=== PATIENT | male | born 1930 | race African-American/Black ===

== ENCOUNTER 2016-07-31 21:35 | Inpatient (IN) | payer OTHER, MEDICARE ==
--- NOTE | ~2016-07-31 | DS ---
Discharge Summary [facility] [address] [place]. [address] NAME: BRAYAN GALINDO : 29 STATUS : DIS IN PAT#: [id number] AGE: 86 ADM/REG DATE : 07/31/16 MR#: [id number] REPORT SERV DATE: 08/14/16 DICTATED BY: LASHAY RUIZ DATE: 08/13/16 REPORT STATUS : Draft TRANSCRIBED BY: MODTeodora DATE: 08/13/16 Data Collection from hospitalization DISCHARGE DIAGNOSES: 1. Acute respiratory failure/pulmonary edema. 2. Anemia/gastrointestinal bleed. 3. Anemia, status post transfusion. 4. Diastolic congestive heart failure. 5. Hepatitis C. 6. End-stage renal disease. 7. Hypertension. 8. Diabetes. 9. Hyperlipidemia. 10.Osteoarthritis. CONSULTATIONS: 1. Avelino Tenorio MD. 2. Yessy Jamison MD. PROCEDURES: CT scan of the abdomen and pelvis without contrast, 07/31/2016. During admission, colonoscopy 08/02/2016, upper GI endoscopy 08/02/2016, intubation 08/03/2016. DISPOSITION: [facility]. HOSPITAL COURSE: This is an 86-year-old man who dialyzes on Mondays, Wednesdays, and Fridays for end-stage renal disease. The patient complained of bright red blood per rectum. The onset was late in the week prior to admission. He is somewhat of a poor historian overall. He reported no associated chest pain, nausea, vomiting, or diarrhea. He said that he was brought to the emergency room with the assistance of his grandson for evaluation. His platelets were somewhat low and he was provided 2 units of fresh frozen plasma and at least one unit of packed red blood cells. Dialysis would be initiated the following morning. He was admitted at this time for further evaluation and treatment. Upon admission, a CT scan of the abdomen and pelvis without contrast revealed mild diverticulosis throughout the colon. No acute diverticulitis pattern was identified. Mild cortical renal thinning was noted. He had moderate to severe degenerative joint disease at L4-L5 and central focal spinal stenosis L4-L5 and moderate stenosis L3-L4. He was held n.p.o. The following morning, dialysis therapy was performed. He was seen by Dr. Avelino Tenorio regarding rectal bleeding. Hemoglobin had decreased down to 6.5. INR level was mildly elevated at 1.6. Creatinine level was 6.57. The patient did not appear to have any active bleeding at this time. A bowel prep would be performed as it was felt the patient would need to undergo a colonoscopy. If no source of bleeding was found on colonoscopy, he recommended pursuing an EGD. On 08/02/2016, the patient was taken to the Endoscopic Suite by Dr. Jere Romano where he underwent colonoscopy. There was blood in the entire examined colon, left greater than right. There was a 30 mm polyp in the cecum. Resection was not attempted secondary to GI bleeding. There were two 5 to 7 mm polyps in the Discharge Summary [address] [place]. [address] NAME: BRAYAN GALINDO : 29 STATUS : DIS IN PAT#: [id number] AGE: 86 ADM/REG DATE : 07/31/16 MR#: [id number] REPORT SERV DATE: 08/14/16 DICTATED BY: LASHAY RUIZ DATE: 08/13/16 REPORT STATUS : Draft TRANSCRIBED BY: CYNDI DATE: 08/13/16 transverse colon, resection was not attempted. There was diverticulosis from the sigmoid to ascending colon. He had internal hemorrhoids. The examined portion of the ileum was normal. Upper GI endoscopy was also performed. This revealed normal esophagus, hiatal hernia, and normal examined duodenum. On 08/03/2016, the patient felt well. He had no abdominal pain. He was eating. He had no stool output overnight. The patient was seen in consultation by Dr. Yessy Jamison regarding acute hypoxemic respiratory failure. The patient had continued to develop worsening shortness of breath during the process of being transfused. He also received some fluid early in this admission as well. Rapid Response was called on the floor after he was moved directly from room 526 where he had been admitted to the Hemodialysis Unit for emergent volume removal with a suspicion of transfusion-associated circulatory overload. He was actually on a BiPAP at that point and after being started on hemodialysis, he continued to desaturate into the low 80s despite 100% FiO2 with BiPAP setting 20/10 and was ultimately intubated and placed on mechanical ventilation in the dialysis unit. He was admitted to the MICU for further care. He required intubation. It was suspected that he had transfusion associated circulatory overload in the setting of end-stage renal disease. Mechanical ventilation was continued. Dialysis will be completed for volume removal. He would be transferred from the MICU for further workup. SCDs and TEDs were in place for DVT prophylaxis in the setting of acute GI bleed. He was already on a proton pump inhibitor. He would be held n.p.o. until he was more stable. The patient developed progressive hypoxia again with recurrent code. He required CPR two additional time. There were no further plans for CPR. There was a strong likelihood of profound anoxic brain injury. Any meaningful recovery was felt to be dismal. This was discussed with the patient's grandson in detail. The patient's condition continued to decline. Later that afternoon, he was found without blood pressure, pulse, or respirations. He was pronounced at 1653 hours and released to the above-mentioned home. Information collected by: Jeanne Clark I submit the above information as my discharge summary. TG/MODL Lashay Ruiz M.D. / [id number] CC: Gerald Florence MD William M. Cooney, MD
--- NOTE | ~2016-07-31 | HP ---
History And Physical [id number] [facility] [place]. [address] NAME: BRAYAN GALINDO : 29 STATUS : ADM Candie PAT#: [id number] AGE: 86 ADM/REG DATE : 07/31/16 MR#: [id number] REPORT SERV DATE: 08/01/16 DICTATED BY: LASHAY RUIZ DATE: 08/01/16 REPORT STATUS : Draft TRANSCRIBED BY: MODL DATE: 08/01/16 DATE OF ADMISSION: 07/31/2016 REASON FOR ADMISSION: End-stage renal disease patient with complaint of bright red blood per rectum. HISTORY OF PRESENT ILLNESS: This is a very pleasant, 86-year-old -[place] male patient, who dialyzes at [address] on a Thursday, Thursday, Thursday schedule. He reports to [facility] with a complaint of bright red blood per rectum, onset approximately late last week according to the patient's data this morning. However, he is somewhat of a poor historian overall. He reports no associated chest pain. No nausea, vomiting, or diarrhea. He reports that he was brought to the emergency department with the assistance of his grandson for evaluation. He was subsequently admitted inpatient. As his platelets are somewhat low, he was provided two of FFP and has been provided at least one unit of packed red cells, which is infusing now with initiation of dialysis this morning. He is awake and alert. No acute distress. Denies any further complaints as above. PAST MEDICAL HISTORY: Positive for end-stage renal disease, Thursday, Thursday, Thursday dialysis at [address] History also positive for hypertension, diastolic CHF with unknown ejection fraction, LVH, left atrial enlargement, hypertension, diabetes, hyperlipidemia, chronic back pain, osteoarthritis, hepatitis C, and RVH. REVIEW OF SYSTEMS: Completed. Please see HPI for pertinent details. SOCIAL HISTORY: No ETOH. No illicit drugs. No tobacco. Lives here locally. Does receive some assistance of care from family members. CURRENT MEDICATIONS AND ALLERGIES: Active medications on entry include amlodipine 10 mg p.o. daily, Coreg 12.5 mg p.o. b.i.d., Apresoline 50 mg p.o. t.i.d., NovoLog via sliding scale, and simvastatin 10 mg p.o. at bedtime. ALLERGIES: HE LISTS NO KNOWN ALLERGIES. PHYSICAL EXAMINATION: VITAL SIGNS: Blood pressure at 180/74, temperature 97.2, respiratory rate of 14. His heart rate is 80 beats per minute and regular. He is 100% on 2 L via nasal cannula. GENERAL: He is awake, alert, oriented, somewhat forgetful, very pleasant 86-year-old -[place] male, in no distress, in dialysis unit during evaluation. HEENT: Normocephalic, atraumatic. Normal ocular movements. No scleral icterus. Conjunctival pallor is appreciated. NECK: Supple without thyromegaly. No JVD or mass. CHEST: Positive S1 and S2. No rubs or gallops. LUNGS: Diminished throughout. Normal expansion and effort bilaterally. GI: Positive bowel sounds in all four quadrants. No appreciable mass or tenderness. : Deferred. History And Physical [address] [address] NAME: BRAYAN GALINDO : 29 STATUS : ADM Candie PAT#: [id number] AGE: 86 ADM/REG DATE : 07/31/16 MR#: [id number] REPORT SERV DATE: 08/01/16 DICTATED BY: LASHAY RUIZ DATE: 08/01/16 REPORT STATUS : Draft TRANSCRIBED BY: CYNDI DATE: 08/01/16 EXTREMITIES: Positive pulses to all four extremities. Dialysis access in his left upper extremity, which currently shows a palpable bruit and thrill. He is receiving infusion of packed red cells through a peripheral IV in his right arm. NEUROLOGIC: Appears to be grossly intact. Nonfocal. SKIN: Warm, dry, and intact to the visualized surfaces. No rash, lesions, or ecchymosis. PSYCH: He is of appropriate mood and affect. LABORATORY DATA: Pertinent laboratories and imaging to this evaluation are as follows: Portable chest x-ray shows no acute process, chronic scarring of the left upper lobe. Most recent H and H 6.[address] of the abdomen pelvis without contrast identifies mild diverticulosis throughout the colon. No acute diverticulitis pattern identified with suggested colonoscopy for further evaluation. Mild cortical renal thinning is also noted, [id number] DJD noted in L4- L5, central focal spinal stenosis L4-L5, and moderate stenosis of L3-L4. Most recent CBC shows white blood cell count of 4.6, RBC 2.76, hemoglobin 8.1, hematocrit 23.9, and platelets 136. Comprehensive metabolic panel: Sodium 138, potassium 4.4, chloride 97, CO2 of 30, BUN 44, creatinine 6.17. Reflected GFR 9 mL/minutes, glucose of 325, calcium 7.8, albumin 3.2, alkaline phos 122, ALT and AST 23 and 22. Serum lipase at 63. IMPRESSION AND PLAN: End-stage renal disease patient who is on dialysis, Thursday, Thursday, Thursday at [facility] 3rd, now reporting to [facility] with a complaint of bright red blood per rectum with a decreased hemoglobin and depressed platelets as above. He has received two of FFP this morning at the request of the admitting physician in the emergency department. He is also receiving infusion of packed red cells this morning. We will place him on serial H and H, monitor his hemoglobin and hematocrit and transfuse as needed. N.p.o. status until evaluated by [facility]. Dialysis this morning for his usual treatment time. We will follow him closely with serial H and Hs as above. Home medications will be started to protect his left upper extremity fistula. Strict I's and Os and daily weights. Await further input and opinion by [facility] and we appreciate them participating in this patient's care and assisting with his clinical course. Further modification of treatment plan may be made based on clinical presentation, patient's laboratory results, and further consultation with Renal attending. DICTATED BY: Blayne Cruz NP JR/CYNDI Lashay Ruiz M.D. / [id number] CC: History And Physical [address] [address] NAME: BRAYAN GALINDO : 29 STATUS : ADM Candie PAT#: [id number] AGE: 86 ADM/REG DATE : 07/31/16 MR#: [id number] REPORT SERV DATE: 08/01/16 DICTATED BY: LASHAY RUIZ DATE: 08/01/16 REPORT STATUS : Draft TRANSCRIBED BY: CYNDI DATE: 08/01/16 Gerald Florence Gustafson, MD
--- NOTE | ~2016-07-31 | CN ---
Consultation Report [facility] [address] [place]. [address] NAME: BRAYAN GALINDO : 29 STATUS : ADM IN [facility]#: [id number] AGE: 86 ADM/REG DATE : 07/31/16 MR#: [id number] REPORT SERV DATE: 08/03/16 DICTATED BY: YESSY MADRID DATE: 08/03/16 REPORT STATUS : Draft TRANSCRIBED BY: MODL DATE: 08/03/16 PULMONARY CRITICAL CARE MEDICINE CONSULTATION DATE OF CONSULTATION: 08/03/2016 REASON FOR CONSULTATION: Acute hypoxemic respiratory failure. HISTORY OF PRESENT ILLNESS: Mr. Galindo is an 86-year-old gentleman who has ESRD. He dialyzes at the Center [address] Thursday, Thursday, Thursday. He is fairly active at his baseline, but presented to the hospital over the weekend for bright red blood per rectum, which had actually been going on for at least several days according to his family. He had no other associated symptoms and was admitted for GI evaluation and packed red blood cell transfusion, which was initiated yesterday. Unfortunately, he continued to develop worsening shortness of breath during the process of being transfused, and of note, he also received some fluid early in his admission as well. A rapid response was called on the floor and he was moved directly from room 526 where he had been admitted to the Hemodialysis Unit for emergent volume removal with a suspicion of transfusion associated circulatory overload. He was actually on a BiPAP at that point, and after being started on hemodialysis continued to desaturate to the low 80s despite 100% FiO2 with BiPAP setting 20/10 and was ultimately intubated and placed on mechanical ventilation in the dialysis unit. He is now being moved to the MICU for further care. PAST MEDICAL HISTORY: End-stage renal disease with details as above. Additional past medical history includes hypertension, diastolic CHF, LVH with left atrial enlargement, diabetes, dyslipidemia, chronic back pain, osteoarthritis, and chronic hepatitis C. SURGICAL HISTORY: AV fistula placement. SOCIAL HISTORY: No alcohol, illicit drug, or tobacco use. He uses snuff. His grandson is his primary medical decision maker and lives in the area surrounding the hospital dialyzing at the [address] [place] [address]. FAMILY HISTORY: Noncontributory. REVIEW OF SYSTEMS: A 13-point review of systems was completed and negative except for those points described above in the history of present illness section of the dictation. ALLERGIES: NONE. HOME MEDICATIONS: Amlodipine 10 daily, Coreg 12.5 twice a day, Apresoline 50 mg three times a day, sliding scale insulin on an as needed basis, and Zocor 10 mg at bedtime. He is on no home anticoagulants. Consultation Report [place] [address] [place]. [address] NAME: BRAYAN GALINDO : 29 STATUS : ADM IN PAT#: [id number] AGE: 86 ADM/REG DATE : 07/31/16 MR#: [id number] REPORT SERV DATE: 08/03/16 DICTATED BY: YESSY MADRID DATE: 08/03/16 REPORT STATUS : Draft TRANSCRIBED BY: CYNDI DATE: 08/03/16 ADVANCE DIRECTIVES/LIVING MACEDO: I interviewed his grandson who reported that he wishes to be a full code. PHYSICAL EXAMINATION: VITAL SIGNS: Blood pressure 111/55, heart rate is 85, oxygen saturation is 93% on 100% FiO2. He is afebrile. GENERAL: The patient is an elderly male, who appears chronically ill. He is nonverbal on a BiPAP and picking at the bed sheets and advance of intubation. HEENT: Head is atraumatic and normocephalic. Pupils are equal, round, and reactive to light. Extraocular movements are intact. Ears, nose, and mouth are unremarkable. He is edentulous and his oral mucosa is moist. He has pale conjunctivae and pale gingival mucosa. NECK: Supple with JVD to the sternocleidomastoid. LUNGS: With bibasilar crackles and few expiratory wheezes. HEART: S1, S2. Brisk capillary refill in distal extremities. ABDOMEN: Soft, nontender, nondistended with positive bowel sounds in all four quadrants. No appreciable peritoneal signs. : Normal external male genitalia. EXTREMITIES: Without clubbing, cyanosis, or edema. SKIN: Cool and dry. LYMPHATIC: Exam was unremarkable. NEUROLOGIC: Exam is very limited secondary to mental status. PSYCHIATRIC: Exam is unable to be performed. DIAGNOSTIC DATA: Personal review of diagnostic workup completed today. CBC shows a normochromic normocytic anemia with a hemoglobin of 7.5, hematocrit 22.3, white blood cell count is 5.9, platelet count is 70. Renal function panel shows BUN 31, creatinine of 5.93 with normal electrolytes and a calculated GFR of 0 consistent with end-stage renal disease. Albumin is 2.6, glucose is 59, however, on recheck Accu-Cheks, he has been ranging from 200- 300 throughout the day[address] [facility], and endoscopy report were reviewed. IMPRESSION: 1. Acute hypoxemic respiratory failure requiring mechanical intubation. 2. Suspected transfusion-associated circulatory overload in the setting of end-stage renal disease. 3. Acute lower GI bleed, suspected secondary to bleeding diverticula, which is self- resolved. 4. Normochromic normocytic anemia of chronic renal disease. 5. Thrombocytopenia. 6. Past medical history of hypertension; diastolic congestive heart failure with left ventricular hypertrophy, right ventricular hypertrophy, and left atrial enlargement; type 2 diabetes mellitus; dyslipidemia; chronic back pain; and arthritis. 7. Advanced age and general debility. Consultation Report [address] [address] NAME: BRAYAN GALINDO : 29 STATUS : ADM IN [facility]#: [id number] AGE: 86 ADM/REG DATE : 07/31/16 MR#: [id number] REPORT SERV DATE: 08/03/16 DICTATED BY: YESSY MADRID DATE: 08/03/16 REPORT STATUS : Draft TRANSCRIBED BY: CYNDI DATE: 08/03/16 PLAN: Mr. Galindo has now been intubated in the dialysis unit and we will continue with mechanical ventilation. The suspicion is for transfusion-associated circulatory overload, however, other etiologies cannot be excluded. We will complete his dialysis for volume removal and transfer from the MICU for further workup. A followup chest x-ray following intubation is pending, and we will place a PICC for better central venous access. I did update his grandson at length and he is full code. SCDs and TEDs for DVT prophylaxis in the setting of acute GI bleeding. He is already on a proton pump inhibitor, which will cover stress ulcer prophylaxis while on the ventilator, and he will be kept n.p.o. until he is more stable. Case was discussed at length with Dr. Becker and approximately 72 minutes of critical care time at the bedside were spent assessing and stabilizing Mr. Galindo this afternoon in the hemodialysis unit and later in the MICU (excluding time spent intubating). Thank you for your consultation. We will follow along closely. DANICA/CYNDI Yessy Madrid MD / [id number] CC: Raymundo Camejo M.D.
--- NOTE | ~2016-07-31 | CN ---
Consultation Report [facility] [address] [place]. [address] NAME: BRAYAN GALINDO : 29 STATUS : ADM IN PAT#: [id number] AGE: 86 ADM/REG DATE : 07/31/16 MR#: [id number] REPORT SERV DATE: 08/03/16 DICTATED BY: JENNIFER MADRID DATE: 08/03/16 REPORT STATUS : Draft TRANSCRIBED BY: MODL DATE: 08/03/16 DATE OF CONSULTATION: ADDITIONAL CRITICAL CARE DOCUMENTATION DATE OF DOCUMENTATION: This dictation will cover three separate code blue events as well as critical care time provided between code events up until the patient was made do not resuscitate/comfort care. Please see my detailed consult note as well as intubation note for details of events leading up to code blue event. While the Critical Care team were still in the hemodialysis unit, Mr. Galindo developed worsening oxygen sats and ultimately developed a cardiac arrest after bradying down to asystole at 1506. He had CPR and he was started on ACLS protocol including CPR Ambu bagging and an amp of epinephrine was given. On initial pulse check at 1508, he was in sinus tach and return his circulation was cold. He continued to be Ambu bagged and did receive 1 amp of bicarb. Over the next few minutes, his blood pressure cycled and was 196/88 with a heart rate of 105. Unfortunately, over the course of the next few minutes, he continued to desaturate and when his sat could not be improved from the mid 50s despite aggressive bagging and dissection of the copious secretions emanating from his endotracheal tube, he began to jose miguel down second time around 1522. His initial heart rate was in the low 100s and proceeded downward until it ultimately was in the low 40s with pulse not being palpable. CPR was restarted at 1523 and he was given another amp of epinephrine as well as an amp of calcium and an additional amp of bicarb. CPR was continued and on second pulse check at 1525, he had a blood pressure of 116/75, a heart rate of 120 and palpable peripheral pulses. There were dramatic ST-segment elevations on the monitor and his sat was in the mid 80s. He was actually prepped for transport the short distance from hemodialysis to the MICU and during that transport, he was being Ambu bagged using a PEEP valve set at 16 of PEEP with 100% oxygen. Wentworth down the newman, he was noted to bradying down again and CPR was actually initiated by nursing staff on the bed as it was being rolled into his room in MICU bed 5 and ACLS was re-initiated at 1534. He received another amp of epinephrine and continued to be Ambu bagged until next pulse check at 1537, at which point, he was sinus tach on the monitor with palpable pulse, a heart rate of 119, and a MAP of 156. Unfortunately, he was still not able to be oxygenated due to his marked pulmonary edema with thick copious secretions emanating from the endotracheal tube. He continued to have a thready pulse and after Dr. Becker and I discussed the situation with his grandson, we advised him that no additional ACLS would be of use to save Mr. Galindo' life as at this point, he has been hypoxemic for most of the last hour with sats ranging from 50-80 and he has blown pupils bilaterally with concern for profound anoxic brain injury. We advised that no additional chest compressions would be indicated and we did administer him one dose of morphine and Ativan for comfort, and he developed refractory hypoxemia with sats in the 40s and jose miguel down to asystole a 4th time, and time of was called. His grandson was in the waiting area and has been updated on all of these events and all of his questions were Consultation Report [address] [address] NAME: BRAYAN GALINDO : 28 STATUS : ADM IN [facility]#: [id number] AGE: 86 ADM/REG DATE : 07/31/16 MR#: [id number] REPORT SERV DATE: 08/03/16 DICTATED BY: JENNIFER MADRID DATE: 08/03/16 REPORT STATUS : Draft TRANSCRIBED BY: CYNDI DATE: 08/03/16 answered by myself and Dr. Becker. Please note that an additional 60 minutes of critical care time was expended during the last hour and a half (excluding active resuscitation managing Mr. Glaindo). DANICA/CYNDI Jennifer Madrid MD / [id number] CC: Raymundo Camejo M.D.
--- NOTE | ~2016-07-31 | EGD ---
EGD REPORT [facility] [address] [address] NAME: OLAYINKA GALINDO : [birth year] STATUS : ADM IN PAT#: [id number] AGE: 86 ADM/REG DATE : 07/31/16 MR#: [id number] REPORT SERV DATE: 08/02/16 DICTATED BY: BILLY DING DATE: 08/02/16 REPORT STATUS : Draft TRANSCRIBED BY: [facility] DATE: 08/02/16 Endoscopy Center Patient Name: Olayinka Galindo Date of : 1930 Attending MD: BILLY DING MD Procedure Date No Time: 08/02/2016 Procedure: Colonoscopy Indications: Hematochezia Referring MD: KRYSTLE BONILLA Medicines: Propofol per Anesthesia Complications: No immediate complications. Procedure: Pre-Anesthesia Assessment: - ASA Grade Assessment: IV - A patient with severe systemic disease that is a constant threat to life. After I obtained informed consent, the scope was passed under direct vision. Throughout the procedure, the patient's blood pressure, pulse, and oxygen saturations were monitored continuously. The [facility] H190L [id number] was introduced through the anus and advanced to the terminal ileum, with identification of the appendiceal orifice and IC valve. The colonoscopy was performed without difficulty. The patient tolerated the procedure well. The quality of the bowel preparation was good. Findings: The perianal and digital rectal examinations were normal. Red blood was found in the entire colon. There was a greater amount of blood in the left colon versus the right colon. A sessile polyp was found in the cecum. The polyp was 30 mm in size. Polypectomy was not attempted due to recent GI bleeding. Two sessile polyps were found in the transverse colon. The polyps were 5 to 7 mm in size. Polypectomy was not attempted. Multiple small and large-mouthed diverticula were found from sigmoid to ascending colon. Internal hemorrhoids were found during retroflexion and were Grade I (internal hemorrhoids that do not prolapse). The terminal ileum appeared normal. No blood was noted. Impression: - Blood in the entire examined colon (L>R). - One 30 mm polyp in the cecum. Resection not attempted secondary to GI bleeding. - Two 5 to 7 mm polyps in the transverse colon. Resection not attempted. - Diverticulosis from sigmoid to ascending colon. - Internal hemorrhoids. EGD REPORT [address] [address] NAME: OLAYINKA GALINDO : [birth year] STATUS : ADM IN [facility]#: [id number] AGE: 86 ADM/REG DATE : 07/31/16 MR#: [id number] REPORT SERV DATE: 08/02/16 DICTATED BY: BILLY DING DATE: 08/02/16 REPORT STATUS : Draft TRANSCRIBED BY: [employer] DATE: 08/02/16 - The examined portion of the ileum was normal. Recommendation: - Suspect diverticular bleeding which has ceased. Continue to observe. - Can consider repeat colonoscopy with polypectomy as an outpatient but risks may outweigh benefits given co-morbidities and advanced age. Procedure Code(s): --- Professional --- 59768, Colonoscopy, flexible, proximal to splenic flexure; diagnostic, with or without collection of specimen(s) by brushing or washing, with or without colon decompression (separate procedure) Diagnosis Code(s): --- Professional --- K92.2, Gastrointestinal hemorrhage, unspecified D12.3, Benign neoplasm of transverse colon D12.0, Benign neoplasm of cecum K64.0, First degree hemorrhoids K57.30, Diverticulosis of large intestine without perforation or abscess without bleeding K92.1, Melena CPT copyright 2013 [employer]. All rights reserved. The codes documented in this report are preliminary and upon bulk pigment reducer review may be revised to meet current compliance requirements. BILLY DING MD 08/02/2016 8:32 AM This report has been signed electronically. Number of Addenda: 0 Note Initiated On: 08/02/2016 7:57 AM Scope Withdrawal Time 0 hours 8 minutes 10 seconds [address] [id number]
--- NOTE | ~2016-07-31 | EGD ---
EGD REPORT [facility] [address] [address] NAME: OLAYINKA GALINDO : [birth year] STATUS : ADM IN PAT#: [id number] AGE: 86 ADM/REG DATE : 07/31/16 MR#: [id number] REPORT SERV DATE: 08/02/16 DICTATED BY: BILLY DING DATE: 08/02/16 REPORT STATUS : Draft [facility]ANSCRIBED [facility]: [facility] DATE: 08/02/16 Endoscopy Center Patient Name: Olayinka Galindo Date of : 1930 Attending MD: BILLY DING MD Procedure Date No Time: 08/02/2016 Procedure: Upper GI endoscopy Indications: Acute post hemorrhagic anemia Referring MD: KRYSTLE BONILLA Medicines: Propofol per Anesthesia Complications: No immediate complications. Procedure: Pre-Anesthesia Assessment: - ASA Grade Assessment: IV - A patient with severe systemic disease that is a constant threat to life. After obtaining informed consent, the endoscope was passed under direct vision. Throughout the procedure, the patient's blood pressure, pulse, and oxygen saturations were monitored continuously. The [facility]IF H190 [id number] was introduced through the mouth, and advanced to the second part of duodenum. The upper GI endoscopy was accomplished without difficulty. The patient tolerated the procedure well. Findings: The examined esophagus was normal. A small hiatus hernia was present. The examined duodenum was normal. Impression: - Normal esophagus. - Hiatus hernia. - Normal examined duodenum. Recommendation: - Proceed with colonoscopy. Procedure Code(s): --- Professional --- 89466, Esophagogastroduodenoscopy, flexible, transoral; diagnostic, including collection of specimen(s) by brushing or washing, when performed (separate procedure) Diagnosis Code(s): --- Professional --- K44.9, Diaphragmatic hernia without obstruction or gangrene D62, Acute posthemorrhagic anemia EGD REPORT [facility] [address] [address] NAME: OLAYINKA GALINDO : [birth year] STATUS : ADM IN [facility]#: [id number] AGE: 86 ADM/REG DATE : 07/31/16 MR#: [id number] REPORT SERV DATE: 08/02/16 DICTATED BY: BILLY DING. DATE: 08/02/16 REPORT STATUS : Draft TRANSCRIBED BY: [employer] DATE: 08/02/16 CPT copyright 2013 [employer]. All rights reserved. The codes documented in this report are preliminary and upon psychology intern review may be revised to meet current compliance requirements. BILLY DING MD 08/02/2016 8:27 AM This report has been signed electronically. Number of Addenda: 0 Note Initiated On: 08/02/2016 7:58 AM Scope Withdrawal Time 0 hours 0 minutes 0 seconds [address] [address]
--- NOTE | ~2016-07-31 | CN ---
Consultation Report [facility] [address] [place]. [address] NAME: BRAYAN GALINDO : [birth year] STATUS : ADM Candie PAT#: [id number] AGE: 86 ADM/REG DATE : 07/31/16 MR#: [id number] REPORT SERV DATE: 08/01/16 DICTATED BY: AVELINO NUNEZ DATE: 08/01/16 REPORT STATUS : Draft TRANSCRIBED BY: [employer] DATE: 08/01/16 INPATIENT CONSULT NOTE DATE OF CONSULTATION: 08/01/2016 REASON FOR CONSULTATION: Rectal bleeding. HISTORY OF PRESENT ILLNESS: Mr. Galindo is a very pleasant 86-year-old male with a past medical history significant really only for end-stage renal disease, on dialysis three days per week, who presented to the emergency department due to complaints of rectal bleeding. The patient states that he had had a single bloody bowel movement approximately three-four days prior to this presentation and then had no further bowel movements since that time until the day of presentation when he had another bowel movement that once again was bloody. The patient denied any significant presyncopal symptoms prior to coming into the emergency department. Upon presentation, his blood pressure was in the 130 systolic. The patient's pulse rate was in the 70s. The patient was afebrile, and had a hemoglobin that was noted to be at approximately his baseline of 8.1 with an MCV of 86.6, platelet count was a 136,000, white count was normal. PTT was 31 and INR was 1.4. The patient underwent a CT scan of the abdomen and pelvis, which was unremarkable. With repeating his hemoglobin overnight, the patient was found to have had a drop down to 6.5. INR was also mildly elevated at 1.6. GI consult was called for assessment and further evaluation of GI bleeding. The patient states that he has had a colonoscopy in the past approximately four years ago at the [facility]. He denies any significant findings at that time. No known family history of GI-related malignancy. REVIEW OF SYSTEMS: All systems were reviewed and were negative aside from what was mentioned in history of present illness. PAST MEDICAL HISTORY: Includes, 1. End-stage renal disease, on dialysis three days per week. 2. Diastolic congestive heart failure. 3. Left ventricular hypertrophy. 4. Hypertension. 5. Diabetes. 6. Hyperlipidemia. 7. Chronic back pain. 8. Osteoarthritis. 9. History of hepatitis C. FAMILY HISTORY: The patient has no family history of GI-related malignancy. SOCIAL HISTORY: The patient denies any alcohol, tobacco, or illicit substance use. Consultation Report [address] [place]. [address] NAME: BRAYAN GALINDO : [birth year] STATUS : ADM Candie PAT#: [id number] AGE: 86 ADM/REG DATE : 07/31/16 MR#: [id number] REPORT SERV DATE: 08/01/16 DICTATED BY: AVELINO NUNEZ DATE: 08/01/16 REPORT STATUS : Draft TRANSCRIBED BY: CY[employer]I DATE: 08/01/16 ALLERGIES: THE PATIENT HAS NO KNOWN DRUG ALLERGIES. MEDICATIONS: Outpatient medications include, 1. Hydralazine. 2. Zocor. 3. Norvasc. 4. Coreg. 5. NovoLog insulin. PHYSICAL EXAMINATION: VITAL SIGNS: Most recent vital signs include a temperature of 97.2, pulse of 80, blood pressure 180/74, saturating 100% on 2 L nasal cannula oxygen. GENERAL INSPECTION: Reveals an elderly male, currently lying in bed, receiving dialysis, in no apparent distress. HEENT: Head is normocephalic, atraumatic, with normal inspection of the oral mucosa, which is moist. Sclerae are nonicteric. Pupils are equal and round. NECK: Supple without lymphadenopathy. CARDIAC: Heart rate is regular with normal S1, S2. PULMONARY: Lung sounds are clear to auscultation bilaterally. ABDOMEN: Soft, nontender, nondistended, with normoactive bowel sounds. EXTREMITIES: The patient has no cyanosis, clubbing, or edema. SKIN: No rash was noted. No jaundice. NEUROLOGIC: No gross motor deficits. PSYCHIATRIC: The patient is alert and oriented. Mood and affect are appropriate. Judgment appears to be intact. LABORATORY DATA: Most recent laboratory results include CBC that demonstrated a hemoglobin of 7.4, white count of 5.0, and a platelet count of 101,000. INR was 1.5. Electrolyte panel was remarkable only for elevated BUN and creatinine of 48 and 6.57, glucose was 303. Albumin was low at 2.7. DIAGNOSTIC STUDIES: CT of the abdomen and pelvis was reviewed and is as noted in the history of present illness. ASSESSMENT AND PLAN: Mr. Galindo is a very pleasant 86-year-old male with end stage renal disease, hypertension, hyperlipidemia, diabetes, with no past episodes of GI bleeding, who presents with complaints of two episodes of rectal bleeding spaced out by four days. The patient has had no continued episodes of rectal bleeding, but did have a drop in his hemoglobin from 8 down to 6.5 with an inappropriate response to 2 units of packed red cells up to 7.4. However, the patient does not appear to have any active bleeding. Would complete a bowel prep today for colonoscopy tomorrow. If no source of bleeding is found on colonoscopy, we would recommend pursuing an EGD as well for complete evaluation of the gastrointestinal tract and potential sources of bleeding. For the time being, we would keep the patient on Protonix once daily. We would continue to monitor the patient's hemoglobin Consultation Report [place] [id number] [facility] [place]. [address] NAME: BRAYAN GALINDO : [birth year] STATUS : ADM Candie PAT#: [id number] AGE: 86 ADM/REG DATE : 07/31/16 MR#: [id number] REPORT SERV DATE: 08/01/16 DICTATED BY: AVELINO NUNEZ DATE: 08/01/16 REPORT STATUS : Draft TRANSCRIBED BY: CYNDI DATE: 08/01/16 twice daily to assure that there is no persistent dropping of his blood counts. Thank you very much for this interesting consult. We will continue to follow along with you, and we will plan on performing endoscopic evaluation in the near future after the patient has completed a bowel prep. Please call with any questions or concerns you may have. LYNN/CYNDI Avelino Nunez MD / [id number] CC: Gerald Florence MD
--- NOTE | ~2016-07-31 | OP ---
Record Of Operation [facility] [address] [place]. [address] NAME: BRAYAN GALINDO : 28 STATUS : ADM IN PAT#: [id number] AGE: 86 ADM/REG DATE : 07/31/16 MR#: [id number] REPORT SERV DATE: 08/03/16 DICTATED BY: JENNIFER MADRID DATE: 08/03/16 REPORT STATUS : Draft TRANSCRIBED BY: MODL DATE: 08/03/16 DATE OF PROCEDURE: 08/03/2016 INTUBATION NOTE INDICATION: Acute hypoxemic respiratory failure. PREMEDICATION: Etomidate, rocuronium, and propofol. PROCEDURE IN DETAIL: After obtaining patient's grandson who is his medical decision maker, Mr. Galindo was positioned in the usual fashion and premedicated with RSI drugs as above. He was Ambu bagged and subsequently a #3 GlideScope was advanced and a 7.5 ET tube was inserted into his trachea on the first attempt under direct visualization. There was positive color change on CO2 detector following intubation. Positive condensation in the tube, bilateral breath sounds and absent breath sounds of the fundus of the stomach. A followup chest x-ray was requested and was pending at the time of this dictation. Grandson was updated on his status following the procedure and he will be placed on mechanical ventilation, and moved to the MICU following completion of dialysis session. Please see my consultation note which is dictated separately for full details. DANICA/CYNDI Jennifer Madrid MD / [id number] CC: Raymundo Camejo M.D.
[2016-07-31 20:24] LABS: BASOPHILS 0.4 %; BASOPHILS ABSOLUTE 0.02 10/3/uL (0.0-0.16); EOSINOPHILS 3.3 %; EOSINOPHILS ABSOLUTE 0.15 10/3/uL (0.0-0.53); ER CBC TAT 0 Hrs 07 Mins; HEMOGLOBIN 8.1 g/dL (13.6-17.8); IMMATURE GRANULOCYTES 0.4 %; IMMATURE GRANULOCYTES ABSOLUTE 0.02 10/3/uL (0.0-0.11); LYMPHOCYTES 22.8 %; LYMPHOCYTES ABSOLUTE 1.04 10/3/uL (0.67-4.30); MEAN CORPUSCULAR HEMOGLOB 29.3 pg (26.0-34.0); MEAN PLATELET VOLUME 11.8 fL (9.2-13.0); MONOCYTES 7.9 %; MONOCYTES ABSOLUTE 0.36 10/3/uL (0.21-1.20); NEUTROPHILS 65.2 %; NEUTROPHILS ABSOLUTE 2.97 10/3/uL (2.02-8.40); RBC DISTRIBUTION WIDTH 14.9 % (12.0-16.0); WHITE BLOOD CELLS 4.6 10/3/uL (4.5-10.5)
[2016-07-31 20:27] LABS: HEMATOCRIT 23.9 % (40.0-51.0); MANUAL DIFF NO %; MEAN CORPUS HGB CONC 33.9 g/dL (32.0-36.0); MEAN CORPUSCULAR VOLUME 86.6 fL (80-100); PLATELET COUNT 136 10/3/uL (150-400); RED CELL COUNT 2.76 10/6/uL (4.7-6.1)
[2016-07-31 20:34] LABS: INTERNATIONAL NORMAL RATI 1.4 UNITS (-); PROTIME (NOT ORD) 17.2 SEC (12.0-14.5)
[2016-07-31 20:35] LABS: PARTIAL THROMBO TIME 30.7 SEC (22.5-37.2)
[2016-07-31 20:36] LABS: CALCIUM, SERUM 7.8 MG/DL (8.5-10.4); CHLORIDE, SERUM 97 MMOL/L (96-112); CO2 (CARBON DIOXIDE) 30 MMOL/L (24-34); POTASSIUM, SERUM 4.4 MMOL/L (3.5-5.3); SGOT(AST) 22 U/L (5-40); SGPT(ALT) 23 U/L (5-65); SODIUM, SERUM 138 MMOL/L (135-148); TOTAL PROTEIN 6.5 G/DL (6.0-8.5)
[2016-07-31 20:37] LABS: ALBUMIN 3.2 G/DL (3.5-5.0); ALKALINE PHOSPHATASE 122 U/L (45-117); BUN (BLOOD UREA NITROGEN) 44 MG/DL (6-23); CREATININE 6.17 MG/DL (0.70-1.30); GFR AFRICAN AMERICAN 9 ML/MIN (>=60); GFR NON AFRICAN AMERICAN 7 ML/MIN (>=60); GLOBULIN 3.3 G/DL (2.5-4.1); GLUCOSE, SERUM 325 MG/DL (60-99); TOTAL BILIRUBIN 0.4 MG/DL (0-1.2)
[~2016-07-31 21:35] MED LIST: APRES50 PO; CAT1 PO; CAT2 PO; COREG12 PO; COREG6 PO; HALF81 PO; HYDRALAZINE; INSNOVN SC; LASIX; LISINOPRIL40 MG PO; LORTAB10 PO; MEGACEUDL PO; NORV10 PO; NORV5 PO; NOVOLOG SC; NOVOLOGMIX SC; NOVOPENMIX SC; TUMSROLL PO; VITAMIN D1000 UNI1 PO; ZOCOR10 PO; ZOCOR20 PO
[2016-08-01 03:21] LABS: HEMATOCRIT 19.2 % (40.0-51.0); HEMOGLOBIN 6.5 g/dL (13.6-17.8); PLATELET COUNT 128 10/3/uL (150-400)
[2016-08-01 03:27] LABS: INTERNATIONAL NORMAL RATI 1.6 UNITS (-); PARTIAL THROMBO TIME 29.2 SEC (22.5-37.2); PROTIME (NOT ORD) 18.5 SEC (12.0-14.5)
[2016-08-01 09:13] LABS: BASOPHILS 0.4 %; BASOPHILS ABSOLUTE 0.02 10/3/uL (0.0-0.16); HEMATOCRIT 21.2 % (40.0-51.0); HEMOGLOBIN 7.4 g/dL (13.6-17.8); IMMATURE GRANULOCYTES 0.4 %; IMMATURE GRANULOCYTES ABSOLUTE 0.02 10/3/uL (0.0-0.11); LYMPHOCYTES 21.2 %; LYMPHOCYTES ABSOLUTE 1.06 10/3/uL (0.67-4.30); MEAN CORPUS HGB CONC 34.9 g/dL (32.0-36.0); MEAN CORPUSCULAR HEMOGLOB 27.9 pg (26.0-34.0); MEAN PLATELET VOLUME 11.9 fL (9.2-13.0); MONOCYTES 7.6 %; MONOCYTES ABSOLUTE 0.38 10/3/uL (0.21-1.20); NEUTROPHILS 68.4 %; NEUTROPHILS ABSOLUTE 3.43 10/3/uL (2.02-8.40); PLATELET COUNT 101 10/3/uL (150-400); RBC DISTRIBUTION WIDTH 16.7 % (12.0-16.0); RED CELL COUNT 2.65 10/6/uL (4.7-6.1)
[2016-08-01 09:15] LABS: MANUAL DIFF NO %
[2016-08-01 09:20] LABS: INTERNATIONAL NORMAL RATI 1.5 UNITS (-)
[2016-08-01 09:29] LABS: ALBUMIN 2.7 G/DL (3.5-5.0); CALCIUM, SERUM 7.2 MG/DL (8.5-10.4); CHLORIDE, SERUM 100 MMOL/L (96-112); CO2 (CARBON DIOXIDE) 27 MMOL/L (24-34); CREATININE 6.57 MG/DL (0.70-1.30); GFR AFRICAN AMERICAN 8 ML/MIN (>=60); GFR NON AFRICAN AMERICAN 7 ML/MIN (>=60); GLUCOSE, SERUM 303 MG/DL (60-99); SODIUM, SERUM 140 MMOL/L (135-148)
[2016-08-01 09:30] LABS: BUN (BLOOD UREA NITROGEN) 48 MG/DL (6-23); PHOSPHORUS, SERUM 4.2 MG/DL (2.5-4.5)
[2016-08-01 15:58] LABS: HEMATOCRIT 23.6 % (40.0-51.0); HEMOGLOBIN 7.9 g/dL (13.6-17.8)
[2016-08-01 20:30] LABS: HEMATOCRIT 20.7 % (40.0-51.0); HEMOGLOBIN 6.8 g/dL (13.6-17.8)
[2016-08-02 02:20] LABS: BASOPHILS 0.4 %; BASOPHILS ABSOLUTE 0.03 10/3/uL (0.0-0.16); EOSINOPHILS 2.8 %; EOSINOPHILS ABSOLUTE 0.23 10/3/uL (0.0-0.53); IMMATURE GRANULOCYTES 0.2 %; IMMATURE GRANULOCYTES ABSOLUTE 0.02 10/3/uL (0.0-0.11); LYMPHOCYTES 22.2 %; LYMPHOCYTES ABSOLUTE 1.83 10/3/uL (0.67-4.30); MEAN CORPUS HGB CONC 34.1 g/dL (32.0-36.0); MEAN CORPUSCULAR HEMOGLOB 28.2 pg (26.0-34.0); MEAN PLATELET VOLUME 12.3 fL (9.2-13.0); MONOCYTES 8.8 %; MONOCYTES ABSOLUTE 0.73 10/3/uL (0.21-1.20); NEUTROPHILS 65.6 %; NEUTROPHILS ABSOLUTE 5.42 10/3/uL (2.02-8.40); PLATELET COUNT 88 10/3/uL (150-400); RBC DISTRIBUTION WIDTH 15.9 % (12.0-16.0); RED CELL COUNT 3.05 10/6/uL (4.7-6.1)
[2016-08-02 02:21] LABS: HEMATOCRIT 25.2 % (40.0-51.0); HEMOGLOBIN 8.6 g/dL (13.6-17.8); MANUAL DIFF NO %; MEAN CORPUSCULAR VOLUME 82.6 fL (80-100); WHITE BLOOD CELLS 8.3 10/3/uL (4.5-10.5)
[2016-08-02 02:32] LABS: INTERNATIONAL NORMAL RATI 1.4 UNITS (-); PROTIME (NOT ORD) 16.6 SEC (12.0-14.5)
[2016-08-02 02:35] LABS: BUN (BLOOD UREA NITROGEN) 22 MG/DL (6-23); CALCIUM, SERUM 7.1 MG/DL (8.5-10.4); CHLORIDE, SERUM 104 MMOL/L (96-112); CO2 (CARBON DIOXIDE) 28 MMOL/L (24-34); CREATININE 4.26 MG/DL (0.70-1.30); GFR AFRICAN AMERICAN 14 ML/MIN (>=60); GFR NON AFRICAN AMERICAN 12 ML/MIN (>=60); GLUCOSE, SERUM 76 MG/DL (60-99); POTASSIUM, SERUM 3.9 MMOL/L (3.5-5.3); SODIUM, SERUM 143 MMOL/L (135-148)
[2016-08-02 02:36] LABS: PHOSPHORUS, SERUM 2.4 MG/DL (2.5-4.5)
[2016-08-02 02:57] LABS: PLATELET ESTIMATE DEC (ADEQUATE); RBC MORPHOLOGY NORM (NORMAL)
[2016-08-02 11:28] LABS: HEMATOCRIT 20.3 % (40.0-51.0)
[2016-08-02 14:51] LABS: HEMATOCRIT 35.2 % (40.0-51.0); HEMOGLOBIN 12.3 g/dL (13.6-17.8)
[2016-08-02 21:30] LABS: HEMATOCRIT 23.5 % (40.0-51.0); HEMOGLOBIN 8.2 g/dL (13.6-17.8)
[2016-08-03 06:05] LABS: BASOPHILS 0.5 %; BASOPHILS ABSOLUTE 0.03 10/3/uL (0.0-0.16); EOSINOPHILS 3.2 %; EOSINOPHILS ABSOLUTE 0.19 10/3/uL (0.0-0.53); HEMATOCRIT 22.3 % (40.0-51.0); HEMOGLOBIN 7.5 g/dL (13.6-17.8); IMMATURE GRANULOCYTES 0.2 %; IMMATURE GRANULOCYTES ABSOLUTE 0.01 10/3/uL (0.0-0.11); LYMPHOCYTES 22.9 %; LYMPHOCYTES ABSOLUTE 1.35 10/3/uL (0.67-4.30); MEAN CORPUS HGB CONC 33.6 g/dL (32.0-36.0); MEAN CORPUSCULAR HEMOGLOB 28.8 pg (26.0-34.0); MEAN PLATELET VOLUME 11.5 fL (9.2-13.0); MONOCYTES ABSOLUTE 0.71 10/3/uL (0.21-1.20); NEUTROPHILS 61.2 %; NEUTROPHILS ABSOLUTE 3.61 10/3/uL (2.02-8.40); PLATELET COUNT 70 10/3/uL (150-400); RBC DISTRIBUTION WIDTH 16.1 % (12.0-16.0); WHITE BLOOD CELLS 5.9 10/3/uL (4.5-10.5)
[2016-08-03 06:10] LABS: MANUAL DIFF NO %; MEAN CORPUSCULAR VOLUME 85.8 fL (80-100)
[2016-08-03 06:23] LABS: ALBUMIN 2.6 G/DL (3.5-5.0); CALCIUM, SERUM 7.7 MG/DL (8.5-10.4); CHLORIDE, SERUM 103 MMOL/L (96-112); CO2 (CARBON DIOXIDE) 24 MMOL/L (24-34); PHOSPHORUS, SERUM 2.6 MG/DL (2.5-4.5); POTASSIUM, SERUM 4.1 MMOL/L (3.5-5.3); SODIUM, SERUM 139 MMOL/L (135-148)
[2016-08-03 06:24] LABS: BUN (BLOOD UREA NITROGEN) 31 MG/DL (6-23); CREATININE 5.93 MG/DL (0.70-1.30); GFR AFRICAN AMERICAN 9 ML/MIN (>=60); GFR NON AFRICAN AMERICAN 8 ML/MIN (>=60); GLUCOSE, SERUM 59 MG/DL (60-99)
[2016-08-03 07:40] LABS: HELMET CELLS OCC (0-2/OIF); PLATELET ESTIMATE DEC (ADEQUATE); POLYCHROMASIA 1+ (2-5/OIF) (0-1/OIF); TEARDROP SHAPED RBCS OCC (0-2/OIF)
[2016-08-03 08:14] LABS: HEMATOCRIT 24.1 % (40.0-51.0); HEMOGLOBIN 8.2 g/dL (13.6-17.8)
[2016-08-03 14:50] LABS: ALLENS TEST Pos; BE (BASE EXCESS) -0.5 MEQ/L (0 +/- 2.5); CARBOXYHEMOGLOBIN 1.1 % (0-3); HEMOBLOGIN CONTENT 8.5 G/DL (14-18); INSTRUMENT SERIAL # 8083; METHEMOGLOBIN 0.4 % (0-3); MODE CMV; O2 CONTENT 9.5 VOL% (18-24); PCO2 (CO2 TENSION) 62 MMHG (35-45); PO2 (O2 TENSION) 55 MMHG (79-93); SAMPLE Arterial; TIDAL VOLUME 400 ML; pH 7.26 (7.37-7.43)
[2016-08-03 15:31] LABS: BASOPHILS 0.3 %; BASOPHILS ABSOLUTE 0.01 10/3/uL (0.0-0.16); EOSINOPHILS 0.5 %; EOSINOPHILS ABSOLUTE 0.02 10/3/uL (0.0-0.53); HEMATOCRIT 24.6 % (40.0-51.0); HEMOGLOBIN 8.6 g/dL (13.6-17.8); IMMATURE GRANULOCYTES 0.5 %; IMMATURE GRANULOCYTES ABSOLUTE 0.02 10/3/uL (0.0-0.11); LYMPHOCYTES 7.1 %; LYMPHOCYTES ABSOLUTE 0.28 10/3/uL (0.67-4.30); MANUAL DIFF NO %; MEAN CORPUSCULAR HEMOGLOB 29.6 pg (26.0-34.0); MEAN CORPUSCULAR VOLUME 84.5 fL (80-100); MEAN PLATELET VOLUME 11.7 fL (9.2-13.0); MONOCYTES ABSOLUTE 0.08 10/3/uL (0.21-1.20); NEUTROPHILS 89.6 %; NEUTROPHILS ABSOLUTE 3.51 10/3/uL (2.02-8.40); PLATELET COUNT 84 10/3/uL (150-400); RBC DISTRIBUTION WIDTH 15.4 % (12.0-16.0); RED CELL COUNT 2.91 10/6/uL (4.7-6.1); WHITE BLOOD CELLS 3.9 10/3/uL (4.5-10.5)
[2016-08-03 15:43] LABS: ALBUMIN 2.5 G/DL (3.5-5.0); CALCIUM, SERUM 7.3 MG/DL (8.5-10.4); CHLORIDE, SERUM 107 MMOL/L (96-112); CO2 (CARBON DIOXIDE) 24 MMOL/L (24-34); PHOSPHORUS, SERUM 2.9 MG/DL (2.5-4.5); POTASSIUM, SERUM 3.8 MMOL/L (3.5-5.3); SODIUM, SERUM 144 MMOL/L (135-148)
[2016-08-03 15:44] LABS: BUN (BLOOD UREA NITROGEN) 20 MG/DL (6-23); CREATININE 3.95 MG/DL (0.70-1.30); GFR AFRICAN AMERICAN 15 ML/MIN (>=60); GFR NON AFRICAN AMERICAN 13 ML/MIN (>=60); GLUCOSE, SERUM 302 MG/DL (60-99)
== END 2016-08-03 17:00 | disposition expired | DRG 377 ==
LOC: ER 21:35 → 5SO 23:02 → MIC 08-03 12:57
PROVIDERS: Emergency Medicine; Internal Medicine Critical Care Medicine; Internal Medicine Gastroenterology; Internal Medicine Nephrology; Nurse Practitioner; Registered Nurse
PROC: 30233K1 Transfusion of Nonautologous Frozen Plasma into Peripheral Vein, Percutaneous Approach (ICD-10-PCS; 2016-08-01)
PROC: 5A1D60Z (ICD-10-PCS; 2016-08-01)
PROC: 0DJD8ZZ Inspection of Lower Intestinal Tract, Via Natural or Artificial Opening Endoscopic (ICD-10-PCS; 2016-08-02)
PROC: 30233N1 Transfusion of Nonautologous Red Blood Cells into Peripheral Vein, Percutaneous Approach (ICD-10-PCS; 2016-08-02)
PROC: 0DJ08ZZ Inspection of Upper Intestinal Tract, Via Natural or Artificial Opening Endoscopic (ICD-10-PCS; principal; 2016-08-02 08:05)
PROC: 5A1935Z Respiratory Ventilation, Less than 24 Consecutive Hours (ICD-10-PCS; 2016-08-03)
PROC: 0BH17EZ Insertion of Endotracheal Airway into Trachea, Via Natural or Artificial Opening (ICD-10-PCS; 2016-08-03)
DX: K57.31 Diverticulosis of large intestine without perforation or abscess with bleeding (principal); N18.6 End stage renal disease; J96.01 Acute respiratory failure with hypoxia; I13.2 Hypertensive heart and chronic kidney disease with heart failure and with stage 5 chronic kidney disease, or end stage renal disease; G93.1 Anoxic brain damage, not elsewhere classified; J81.0 Acute pulmonary edema; D62 Acute posthemorrhagic anemia; D69.6 Thrombocytopenia, unspecified; E87.71 Transfusion associated circulatory overload; I46.8 Cardiac arrest due to other underlying condition; I50.32 Chronic diastolic (congestive) heart failure; Z66 Do not resuscitate; Z99.2 Dependence on renal dialysis; K64.9 Unspecified hemorrhoids; B18.2 Chronic viral hepatitis C; D12.0 Benign neoplasm of cecum; D12.3 Benign neoplasm of transverse colon; E78.5 Hyperlipidemia, unspecified; Z72.0 Tobacco use
CPT/HCPCS: 36415; 36600; 71010; 74176; 80053; 80069; 82330; 82803; 82805; 82947; 82962; 83690; 83735; 84132; 84295; 85014; 85018; 85025; 85049; 85610; 85730; 86850; 86900; 86901; 86920; 87641; 93005; 94002; 94660; 96374; 99291; A9270-GY; C9113; G0257; J2597; J3010; J3430; P9016; P9047; P9059